=== PATIENT | female | born 1940 | race Caucasian/White ===

== ENCOUNTER 2023-06-12 03:58 | Emergency (ER) | payer OTHER, MEDICARE ==
[2023-06-12 04:18] VITALS: BP 146/82; PULSE 67; RESP 16; TEMP 97.6; BMI 17.2
[2023-06-12] MEDS ORDERED: DIPHTH,PERTUSS(ACELL),TET 0.5 ML DISP.SYRIN IM ONE (05:23)
[2023-06-12] MEDS: DIPHTH,PERTUSS(ACELL),TET 0.5 ML DISP.SYRIN IM ONE (05:26)
[2023-06-12 05:41] LABS: EPI CELLS 12 /uL (0-25.1); HYALINE CASTS 1 /uL (0-3.1); PH,URINE 6.5 (5.0-8.0); URINE APPEARANCE CLEAR; URINE BACTERIA 122 /uL (0-1359); URINE BILIRUBIN NEGATIVE (NEGATIVE); URINE COLOR YELLOW; URINE GLUCOSE (UA) NEGATIVE (NEGATIVE); URINE KETONE NEGATIVE (NEGATIVE); URINE LEUK ESTERASE 2+ (NEGATIVE); URINE NITRITE NEGATIVE (NEGATIVE); URINE PROTEIN NEGATIVE (NEGATIVE); URINE RBC 17 /uL (0-23.9); URINE UROBILINOGEN 0.2 mg/dL (0.2-1.0); URINE WBC 119 /uL (0-25.8)
[2023-06-12 05:56] LABS: POTASSIUM 4.1 mmol/L (3.5-5.1)
[2023-06-12 05:57] LABS: BASO % 0.4 % (0-2.0); EOS % 3.3 % (0-4.5); HEMATOCRIT 32.9 % (32.4-45.2); HEMOGLOBIN 10.8 GM/dL (10.7-15.3); LYMPH % 17.5 % (8-40); MCH 31.9 pg (25.7-33.7); MCHC 32.8 g/dl (32.0-36.0); MEAN CELL VOLUME 97.2 fl (80-96); MEAN PLT VOLUME 8.5 fl (7.5-11.1); MONO % 6.6 % (3.8-10.2); NEUT % 72.2 % (42.8-82.8); PLATELET COUNT 250 10^3/uL (134-434); RBC 3.39 M/mm3 (3.60-5.2); RDW 13.3 % (11.6-15.6); WHITE BLOOD COUNT 7.1 K/mm3 (4.0-10.0)
[2023-06-12 05:58] LABS: INR 1.04 (0.83-1.09); PROTHROMBIN TIME (PATIENT) 12.1 SEC (9.7-13.0)
[2023-06-12 05:58] LABS: BLOOD UREA NITROGEN 17.1 mg/dL (7-18); CALCIUM 10.7 mg/dL (8.5-10.1); MAGNESIUM 2.2 mg/dL (1.8-2.4)
[2023-06-12 05:59] LABS: ALBUMIN 3.9 g/dl (3.4-5.0)
[2023-06-12 06:01] LABS: ACTIVATED PTT 36.3 SECONDS (25.2-36.5)
[2023-06-12 06:03] LABS: BILIRUBIN,TOTAL 0.4 mg/dL (0.2-1); TOT PROT 7.9 g/dl (6.4-8.2)
[2023-06-12] MEDS: CEFTRIAXONE 1,000 MG in DEXTROSE 5%-WATER - 50 ML IVPB ONE (06:41)
[2023-06-12] MEDS ORDERED: CEFTRIAXONE 1 GM/50 ML BAG ONE (06:42)
== END 2023-06-12 11:55 ==
LOC: JER 03:58
PROC: 3E03329 Introduction of Other Anti-infective into Peripheral Vein, Percutaneous Approach (ICD-10-PCS; principal; 2023-06-12)
PROC: 3E0234Z Introduction of Serum, Toxoid and Vaccine into Muscle, Percutaneous Approach (ICD-10-PCS; 2023-06-12)
PROC: 0HQ1XZZ Repair Face Skin, External Approach (ICD-10-PCS; 2023-06-12)
DX: S01.81XA Laceration without foreign body of other part of head, initial encounter (principal); W19.XXXA Unspecified fall, initial encounter
CPT/HCPCS: 12011-25; 36415; 70450-TC; 71045-TC-FY; 72125-TC; 80053; 81003; 83735; 84484; 85025; 85610; 85730; 86850; 86900; 86901; 87086; 90471; 90715; 93005; 93010; 96365; 99285-25

== ENCOUNTER 2023-06-23 11:14 | Inpatient (IN) | payer OTHER, MEDICARE ==
[2023-06-23 13:32] LABS: HEMATOCRIT 23.5 % (32.4-45.2); HEMOGLOBIN 7.8 GM/dL (10.7-15.3); MCHC 33.1 g/dl (32.0-36.0); MEAN CELL VOLUME 96.5 fl (80-96); MEAN PLT VOLUME 7.9 fl (7.5-11.1); PLATELET COUNT 200 10^3/uL (134-434); RBC 2.43 M/mm3 (3.60-5.2); RDW 13.4 % (11.6-15.6); WHITE BLOOD COUNT 5.7 K/mm3 (4.0-10.0)
[2023-06-23 13:57] LABS: POTASSIUM 4.3 mmol/L (3.5-5.1)
[2023-06-23 14:00] LABS: BLOOD UREA NITROGEN 18.2 mg/dL (7-18); CALCIUM 9.5 mg/dL (8.5-10.1)
[2023-06-23 14:04] LABS: BILIRUBIN,TOTAL 0.2 mg/dL (0.2-1); TOT PROT 6.4 g/dl (6.4-8.2)
[2023-06-23 14:09] LABS: CREATININE 0.9 mg/dL (0.55-1.3)
[2023-06-23 14:12] LABS: URINE APPEARANCE CLEAR; URINE BILIRUBIN NEGATIVE (NEGATIVE); URINE COLOR YELLOW; URINE GLUCOSE (UA) NEGATIVE (NEGATIVE); URINE KETONE NEGATIVE (NEGATIVE); URINE LEUK ESTERASE NEGATIVE (NEGATIVE); URINE NITRITE NEGATIVE (NEGATIVE); URINE PROTEIN TRACE (NEGATIVE); URINE UROBILINOGEN 0.2 mg/dL (0.2-1.0)
[2023-06-23] MEDS: D5-1/2NS+10 MEQ KCL - 10 MEQ/1,000 ML INFUS.BAG IV SCH (16:05)
[2023-06-23] MEDS ORDERED: PANTOPRAZOLE SODIUM 40 MG VIAL ONE (16:12)
[2023-06-23] MEDS: PANTOPRAZOLE SODIUM 40 MG VIAL IVPUSH SCH (16:16)
[2023-06-23 16:27] LABS: IRON SERUM 37 ug/dL (50-175); TOTAL IRON BINDING CAPACITY 265 ug/dL (250-450)
[2023-06-23 16:43] LABS: MAGNESIUM 2.2 mg/dL (1.8-2.4)
[2023-06-23 16:45] LABS: PHOSPHOROUS 3.4 mg/dL (2.5-4.9)
[2023-06-23] MEDS ORDERED: ACETAMINOPHEN 325 MG TABLET (FP) PO PRN (20:05)
[2023-06-23] MEDS: IRON SUCROSE INJECTION 300 MG in SODIUM CHLORIDE 250 ML IVPB ONE (21:19)
[2023-06-24 07:04] VITALS: BMI 18.1
[2023-06-24 07:24] LABS: BASO % 0.4 % (0-2.0); EOS % 3.4 % (0-4.5); HEMATOCRIT 27.4 % (32.4-45.2); HEMOGLOBIN 9.1 GM/dL (10.7-15.3); LYMPH % 18.5 % (8-40); MCHC 33.2 g/dl (32.0-36.0); MEAN CELL VOLUME 96.3 fl (80-96); MONO % 8.1 % (3.8-10.2); NEUT % 69.6 % (42.8-82.8); PLATELET COUNT 228 10^3/uL (134-434); RBC 2.85 M/mm3 (3.60-5.2); RDW 13.4 % (11.6-15.6); WHITE BLOOD COUNT 6.2 K/mm3 (4.0-10.0)
[2023-06-24 07:52] LABS: POTASSIUM 3.8 mmol/L (3.5-5.1)
[2023-06-24 07:59] LABS: BLOOD UREA NITROGEN 20.5 mg/dL (7-18); CALCIUM 10.1 mg/dL (8.5-10.1)
[2023-06-24 08:02] LABS: CREATININE 0.9 mg/dL (0.55-1.3)
[2023-06-24] MEDS ORDERED: DOCUSATE SODIUM 100 MG CAPSULE (FP) PO PRN (09:22)
[2023-06-24] MEDS: MULTIVITAMINS THER W-MINERALS COMBO TABLET (FP) PO SCH (09:53)
[2023-06-24] MEDS: ASCORBIC ACID 500 MG TABLET (FP) PO SCH (09:53)
[2023-06-24] MEDS: CYANOCOBALAMIN 1,000 MCG TABLET (FP) PO SCH (10:10)
[2023-06-24] MEDS: D5-1/2NS+10 MEQ KCL - 10 MEQ/1,000 ML INFUS.BAG IV SCH ×2 (10:11→10:22)
[2023-06-24] MEDS: CHOLECALCIFEROL (VIT D3) 1,000 UNIT (25 MCG) TABLET PO SCH (10:11)
[2023-06-24] MEDS: MIRTAZAPINE 15 MG TABLET (FP) PO SCH (10:12)
[2023-06-24] MEDS: TIMOLOL 0.5% OPHTHALMIC SOL 5 ML BOTTLE OU SCH (10:40)
[2023-06-24] MEDS: PILOCARPINE 2% OPHTHALMIC SOLUTION 15 ML BOTTLE OD SCH (10:58)
[2023-06-24] MEDS ORDERED: MINERAL OIL ENEMA 133 ML ENEMA RC ONE ×2 (13:00→20:00)
[2023-06-24] MEDS ORDERED: MAGNESIUM HYDROX 2400MG/30ML ORAL SUSPENSION 30 ML CUP PO ONE (13:00)
[2023-06-24] MEDS ORDERED: MINERAL OIL 30 ML UNIT-DOSE CUP PO ONE (13:30)
[2023-06-24] MEDS: POLYETHYLENE GLYCOL (HEALTHYLAX) 3350 17 GM PACKET PO SCH (14:04)
[2023-06-24] MEDS ORDERED: IOHEXOL (OMNIPAQUE PO) 12 MG/ML - 500 ML BOTTLE PO ONE (16:07)
[2023-06-24] MEDS: IRON SUCROSE INJECTION 300 MG in SODIUM CHLORIDE 250 ML IVPB ONE (18:00)
[2023-06-24] MEDS: MAGNESIUM HYDROX 2400MG/30ML ORAL SUSPENSION 30 ML CUP PO ONE (20:16)
[2023-06-24] MEDS: DOCUSATE SODIUM 100 MG CAPSULE (FP) PO SCH (21:44)
[2023-06-24] MEDS: DONEPEZIL HCL 5 MG TABLET (FP) PO SCH (21:44)
[2023-06-24] MEDS: ROSUVASTATIN CA 5 MG TABLET PO SCH (21:44)
[2023-06-24] MEDS: SENNOSIDES 8.6MG TABLET (FP) PO SCH (21:45)
[2023-06-24] MEDS: LATANOPROST 0.005% OPHTH SOLN 2.5ML BOTTLE OU SCH (21:50)
[2023-06-24] MEDS: MINERAL OIL 30 ML UNIT-DOSE CUP PO ONE (21:55)
[2023-06-24] MEDS ORDERED: MIRTAZAPINE 15 MG TABLET (FP) PO SCH (22:00)
[2023-06-25] MEDS: LEVOTHYROXINE NA 75 MCG TABLET (FP) PO SCH (06:18)
[2023-06-25] MEDS: D5-1/2NS+10 MEQ KCL - 10 MEQ/1,000 ML INFUS.BAG IV SCH (07:07)
[2023-06-25 07:14] LABS: BASO % 0.5 % (0-2.0); EOS % 4.3 % (0-4.5); HEMATOCRIT 24.7 % (32.4-45.2); HEMOGLOBIN 8.3 GM/dL (10.7-15.3); LYMPH % 21.7 % (8-40); MCH 32.2 pg (25.7-33.7); MCHC 33.6 g/dl (32.0-36.0); MEAN CELL VOLUME 95.9 fl (80-96); MEAN PLT VOLUME 8.2 fl (7.5-11.1); MONO % 10.9 % (3.8-10.2); NEUT % 62.6 % (42.8-82.8); PLATELET COUNT 205 10^3/uL (134-434); RBC 2.58 M/mm3 (3.60-5.2); RDW 13.2 % (11.6-15.6); WHITE BLOOD COUNT 5.2 K/mm3 (4.0-10.0)
[2023-06-25 07:27] LABS: BLOOD UREA NITROGEN 15.6 mg/dL (7-18)
[2023-06-25 07:31] LABS: CREATININE 0.8 mg/dL (0.55-1.3)
[2023-06-25] MEDS: IRON SUCROSE INJECTION 300 MG in SODIUM CHLORIDE 235 ML IVPB ONE (13:45)
[2023-06-26 06:53] LABS: BASO % 0.6 % (0-2.0); EOS % 3.9 % (0-4.5); HEMATOCRIT 25.2 % (32.4-45.2); HEMOGLOBIN 8.5 GM/dL (10.7-15.3); LYMPH % 20.7 % (8-40); MCH 32.5 pg (25.7-33.7); MCHC 33.5 g/dl (32.0-36.0); MEAN CELL VOLUME 96.8 fl (80-96); MEAN PLT VOLUME 8.1 fl (7.5-11.1); MONO % 10.3 % (3.8-10.2); NEUT % 64.5 % (42.8-82.8); PLATELET COUNT 199 10^3/uL (134-434); RDW 13.3 % (11.6-15.6)
[2023-06-26 07:04] LABS: POTASSIUM 4.3 mmol/L (3.5-5.1)
[2023-06-26 07:13] LABS: CALCIUM 9.8 mg/dL (8.5-10.1)
[2023-06-26 07:14] LABS: ALBUMIN 2.9 g/dl (3.4-5.0); BLOOD UREA NITROGEN 15.8 mg/dL (7-18)
[2023-06-26 07:17] LABS: CREATININE 0.8 mg/dL (0.55-1.3)
[2023-06-26 07:20] LABS: BILIRUBIN,TOTAL 0.3 mg/dL (0.2-1); TOT PROT 6.1 g/dl (6.4-8.2)
[2023-06-26] MEDS: PANTOPRAZOLE 40 MG TABLET PO SCH (09:48)
[2023-06-27 08:23] LABS: BASO % 0.7 % (0-2.0); EOS % 4.6 % (0-4.5); HEMATOCRIT 24.7 % (32.4-45.2); HEMOGLOBIN 8.3 GM/dL (10.7-15.3); MCH 32.4 pg (25.7-33.7); MCHC 33.8 g/dl (32.0-36.0); MEAN CELL VOLUME 95.8 fl (80-96); MEAN PLT VOLUME 8.4 fl (7.5-11.1); MONO % 10.5 % (3.8-10.2); NEUT % 61.2 % (42.8-82.8); PLATELET COUNT 199 10^3/uL (134-434); RBC 2.58 M/mm3 (3.60-5.2); RDW 13.8 % (11.6-15.6); WHITE BLOOD COUNT 5.5 K/mm3 (4.0-10.0)
[2023-06-27 08:33] LABS: POTASSIUM 4.3 mmol/L (3.5-5.1)
[2023-06-27 08:34] LABS: CALCIUM 10.1 mg/dL (8.5-10.1)
[2023-06-27 08:35] LABS: BLOOD UREA NITROGEN 16.4 mg/dL (7-18)
[2023-06-27 08:38] LABS: CREATININE 0.8 mg/dL (0.55-1.3)
[2023-06-27 19:06] VITALS: RESP 18
[2023-06-28] MEDS: IRON POLYSACCHARIDES 150 MG CAPSULE PO SCH (10:34)
[2023-06-28] MEDS: DOCUSATE SODIUM 100 MG CAPSULE (FP) PO SCH (13:30)
[2023-06-28] MEDS: SENNOSIDES 8.6MG TABLET (FP) PO SCH (22:20)
[2023-06-29 06:59] LABS: EOS % 4.2 % (0-4.5); HEMATOCRIT 22.3 % (32.4-45.2); HEMOGLOBIN 7.5 GM/dL (10.7-15.3); MCH 32.3 pg (25.7-33.7); MCHC 33.7 g/dl (32.0-36.0); MEAN CELL VOLUME 95.8 fl (80-96); MONO % 10.3 % (3.8-10.2); NEUT % 64.5 % (42.8-82.8); PLATELET COUNT 221 10^3/uL (134-434); RBC 2.32 M/mm3 (3.60-5.2); RDW 13.7 % (11.6-15.6); WHITE BLOOD COUNT 5.8 K/mm3 (4.0-10.0)
[2023-06-29 07:16] LABS: CALCIUM 10.2 mg/dL (8.5-10.1)
[2023-06-29 07:20] LABS: CREATININE 0.9 mg/dL (0.55-1.3)
[2023-06-29] MEDS: IRON SUCROSE INJECTION 300 MG in SODIUM CHLORIDE 250 ML IVPB ONE (15:44)
[2023-06-29] MEDS: EPOETIN ALFA-EPBX 20,000 UNIT/ML VIAL SQ ONE (18:05)
[2023-06-30 07:30] LABS: POTASSIUM 3.8 mmol/L (3.5-5.1)
[2023-06-30 07:32] LABS: BLOOD UREA NITROGEN 25.1 mg/dL (7-18); CALCIUM 10.1 mg/dL (8.5-10.1)
[2023-06-30 07:33] LABS: BASO % 0.6 % (0-2.0); HEMATOCRIT 23.3 % (32.4-45.2); HEMOGLOBIN 7.8 GM/dL (10.7-15.3); LYMPH % 15.8 % (8-40); MCH 32.4 pg (25.7-33.7); MCHC 33.3 g/dl (32.0-36.0); MEAN CELL VOLUME 97.3 fl (80-96); MEAN PLT VOLUME 8.5 fl (7.5-11.1); MONO % 10.3 % (3.8-10.2); NEUT % 70.3 % (42.8-82.8); PLATELET COUNT 203 10^3/uL (134-434); RDW 14.7 % (11.6-15.6); WHITE BLOOD COUNT 6.6 K/mm3 (4.0-10.0)
[2023-06-30 07:36] LABS: CREATININE 0.9 mg/dL (0.55-1.3)
[2023-06-30 14:58] VITALS: BP 116/60; PULSE 75; TEMP 98.2
== END 2023-06-30 16:48 | disposition home or self-care (01) | DRG 435 ==
LOC: JER 11:14 → JERBED 14:25 → OBSVTOIN 15:34 → J4W 19:51
PROVIDERS: ADMIT Internal Medicine; ATTEND Internal Medicine
DX: C25.9 Malignant neoplasm of pancreas, unspecified (principal); E43 Unspecified severe protein-calorie malnutrition; G93.41 Metabolic encephalopathy; R64 Cachexia; Z68.1 Body mass index [BMI] 19.9 or less, adult; E78.5 Hyperlipidemia, unspecified; F03.90 Unspecified dementia, unspecified severity, without behavioral disturbance, psychotic disturbance, mood disturbance, and anxiety; E03.9 Hypothyroidism, unspecified; E86.0 Dehydration; I25.10 Atherosclerotic heart disease of native coronary artery without angina pectoris; D50.9 Iron deficiency anemia, unspecified
CPT/HCPCS: 0241U-QW; 36415; 70450-TC; 71045-TC-FY; 74176-TC; 80048; 80053; 81003; 82728; 82962; 83540; 83550; 83735; 84100; 84484; 85025; 85027; 87086; 93005; 93010; 93306-TC; 93880-TC; 97116-GP; 97161-GP; 99285-25; G0378; J1756

== ENCOUNTER 2023-06-30 22:39 | Emergency (ER) | payer OTHER, MEDICARE ==
[2023-06-30 22:56] VITALS: BP 109/67; PULSE 94; RESP 16; TEMP 98.2; BMI 16.5
== END 2023-07-01 01:56 ==
LOC: JER 22:39
DX: T82.594A Other mechanical complication of infusion catheter, initial encounter (principal)
CPT/HCPCS: 99283-25

== ENCOUNTER 2023-07-20 08:09 | Emergency (ER) | payer OTHER, MEDICARE ==
[2023-07-20 09:52] VITALS: TEMP 97.7; BMI 18.1
[2023-07-20] MEDS: DEXTROSE 5%-NORMAL SALINE 500 ML IV ONE (12:44)
[2023-07-20] MEDS: morphine CARPU-JECT 4 MG/1 ML DISP.SYRIN IVPUSH ONE (16:37)
[2023-07-20] MEDS: morphine CARPU-JECT 2 MG/1 ML DISP.SYRIN IVPUSH ONE (17:54)
[2023-07-20 17:55] VITALS: BP 102/45; PULSE 43; RESP 14
== END 2023-07-20 17:56 | disposition home or self-care (01) ==
LOC: JER 08:09
PROC: 3E0337Z Introduction of Electrolytic and Water Balance Substance into Peripheral Vein, Percutaneous Approach (ICD-10-PCS; principal; 2023-07-20)
DX: S80.211A Abrasion, right knee, initial encounter (principal); S80.212A Abrasion, left knee, initial encounter; W19.XXXA Unspecified fall, initial encounter
CPT/HCPCS: 70450-TC; 71045-TC-FY; 72125-TC; 72170-TC-FY; 73560-TC-LT-FY; 73562-TC-RT-FY; 82962; 99285-25